=== PATIENT | male | born 1990 | race African-American/Black ===

== ENCOUNTER 2019-03-09 18:57 | Emergency (ER) | payer BC ==
[2019-03-09] MEDS ORDERED: FENTANYL CITR 100 MCG/2 ML ONE (21:32)
[2019-03-09] MEDS ORDERED: CLINDAMYCIN 900MG/D5W 900 MG/50 ML IVPB IV ONE (21:33)
[2019-03-09] MEDS ORDERED: ONDANSETRON 4 MG/2 ML VIAL ONE (21:33)
[2019-03-09] MEDS ORDERED: NA CHLORIDE 0.9% 1,000 ML ONE (21:33)
[2019-03-09] MEDS ORDERED: LIDOCAINE 1% MPF 5 ML VIAL ONE (21:33)
[2019-03-09 21:49] LABS: Absolute Lymphocytes (CBC) 1.3 K/uL (0.7-4.9); Absolute Neutrophil 9.5 K/uL (1.8-8.0); Basophils % 0.2 % (0-1.3); Eosinophils % 0.4 % (0-4.4); Hematocrit 41.7 % (39.6-49.0); Lymphocytes % 10.8 % (15.3-44.8); MPV 9.1 fL (7.6-11.3); Monocytes % 8.4 % (3.3-12.3); RBC Red Blood Cell Count 4.54 M/uL (4.33-5.43)
[2019-03-09 22:02] LABS: Potassium 3.5 mmol/L (3.5-5.1)
[2019-03-09] MEDS ORDERED: BUPIVACAINE 0.5% PF 10 ML VIAL ONE (22:17)
[2019-03-09] MEDS ORDERED: LIDOCAINE 1% W/EPI 1:100,000 MDV 50 ML VIAL ONE (22:17)
--- NOTE | 2019-03-09 22:31 | EDPHYS ---
Physician Documentation [facility] Name: Yves Lee II Age: 28 yrs Sex: Male : 1990 Arrival Date: 03/09/2019 Time: 19:03 Bed 16 Private MD: ED Physician Pieter Szymanski HPI: 03/09 21:10 This 28 yrs old Black Male presents to ER via Ambulatory with complaints of Boil, Fever.cp 21:10 the patient presents with a swollen area of the coccyx. cp 21:10 Description: swollen, tense. cp 21:10 Onset: The symptoms/episode began/occurred 3 day(s) ago. cp 21:10 Associated signs and symptoms: Pertinent positives: fever, Pertinent negatives: cp discharge, drainage. The patient has been recently seen by a physician: in [place], yesterday, with similar presenting complaints, was given a prescription for pain medications, was given a prescription for antibiotics. Historical: - Allergies: 19:06 No Known Allergies; jd3 - Home Meds: 19:06 None [Active]; jd3 - PMHx: 19:06 None; jd3 - PSHx: 19:06 None; jd3 - Immunization history:: Adult Immunizations up to date. - Social history:: Smoking status: Patient/guardian denies using tobacco. - Ebola Screening: : Patient negative for fever greater than or equal to 101.5 degrees Fahrenheit, and additional compatible Ebola Virus Disease symptoms. ROS: 21:15 Skin: Positive for swelling, of the coccyx, pain. cp 21:15 Constitutional: Negative for body aches, chills, fever. cp 21:15 Cardiovascular: Negative for chest pain. 21:15 Respiratory: Negative for cough, shortness of breath, wheezing. 21:15 Abdomen/GI: Negative for abdominal pain, nausea, vomiting, and diarrhea. 21:15 All other systems are negative. Exam: 21:20 Constitutional: The patient appears in no acute distress, alert, awake, non-toxic, well cp developed, well nourished, uncomfortable. 21:20 Head/Face: Normocephalic, atraumatic. cp 21:20 Eyes: Periorbital structures: appear normal, Conjunctiva: normal, Lids and lashes: appear normal, bilaterally. 21:20 ENT: External ear(s): are unremarkable, Nose: is normal, Mouth: Lips: moist, Oral mucosa: moist. 21:20 Chest/axilla: Inspection: normal. 21:20 Cardiovascular: Rate: tachycardic. 21:20 Respiratory: the patient does not display signs of respiratory distress, Respirations: normal. 21:20 Abdomen/GI: Inspection: abdomen appears normal, Palpation: abdomen is soft and non-tender, in all quadrants. 21:20 Skin: abscess, that is small, of the coccyx, with drainage, that is purulent. 21:20 Neuro: Orientation: to person, place \T\ time. Mentation: is normal, Motor: moves all fours, strength is normal. Vital Signs: 19:06 BP 143 / 69; Pulse 111; Resp 17 S; Temp 98.2(O); Pulse Ox 99% on R/A; Weight 95.25 kg jd3 (R); Height 6 ft. 0 in. (182.88 cm) (R); Pain 5/10; 19:47 BP 118 / 75; Pulse 101; Resp 18; Temp 98.9; Pulse Ox 100% on R/A; wh 22:50 BP 119 / 75; Pulse 93; Resp 18; Pulse Ox 97% on R/A; wh 19:06 Body Mass Index 28.48 (95.25 kg, 182.88 cm) jd3 Procedures: 22:30 I \T\ D: Incision and drainage was performed for an abscess of the pilonidal cyst Prepped cp with Betadine, Anesthetized with 9 ccs of 1% lidocaine with epi and 0.5% marcaine. Incised with #11 blade. Drained small amount purulent fluid. Packed with iodoform gauze, Dressing: sterile 4x4 gauze, the patient tolerated the procedure well. MDM: 19:11 Patient medically screened. cp 21:00 Differential diagnosis: abscess, cellulitis. cp 22:31 Data reviewed: vital signs, nurses notes, and as a result, I will discharge patient. cp 22:31 Counseling: I had a detailed discussion with the patient and/or guardian regarding: the cp historical points, exam findings, and any diagnostic results supporting the discharge/admit diagnosis, to return to the emergency department if symptoms worsen or persist or if there are any questions or concerns that arise at home. Response to treatment: the patient's symptoms have mildly improved after treatment, and as a result, I will discharge patient. ED course: VSS. Pain improved. IV clindamycin given in ED. Patient currently taking Bactrim, will add oral clindamycin and discharge to home for continued monitoring. 03/09 21:05 Order name: CBC with Diff cp 03/09 21:05 Order name: BMP; Complete Time: 22:16 cp 03/09 21:05 Order name: Wound Culture cp 03/09 21:07 Order name: CBC with Automated Diff; Complete Time: 22:16 EDMS 03/09 21:05 Order name: IV; Complete Time: 21:38 cp 03/09 21:05 Order name: I\T\D Setup; Complete Time: 21:38 cp Administered Medications: 21:36 Drug: Clindamycin 900 mg Route: IVPB; Infused Over: 30 mins; Site: left antecubital; 23:02 Follow up: Response: No adverse reaction; IV Status: Completed infusion 21:37 Drug: NS 0.9% 1000 ml Route: IV; Rate: 1 bolus; Site: left antecubital; 23:03 Follow up: Response: No adverse reaction; IV Status: Completed infusion 21:37 Drug: fentaNYL (PF) 25 mcg Route: IVP; Site: left antecubital; 23:03 Follow up: Response: No adverse reaction 21:37 Drug: Zofran 4 mg Route: IVP; Site: left antecubital; 23:03 Follow up: Response: No adverse reaction Disposition: 23:15 Chart complete. Disposition: 03/09/19 22:31 Discharged to Home. Impression: Pilonidal cyst with abscess. - Condition is Stable. - Discharge Instructions: Pilonidal Cyst, Incision and Drainage of a Pilonidal Cyst, Care After, Incision and Drainage of a Pilonidal Cyst. - Prescriptions for Clindamycin HCl 300 mg Oral Capsule - take 1 capsule by ORAL route every 6 hours for 10 days; 40 capsule. Tylenol- Codeine #3 300-30 mg Oral Tablet - take 2 tablets by ORAL route every 6 hours As needed; 20 tablet. - Medication Reconciliation Form, Thank You Letter, Antibiotic Education, Prescription Opioid Use, Work release form form. - Follow up: Donald Sarmiento MD; When: 2 - 3 days; Reason: Wound Recheck. - Problem is new. - Symptoms have improved. Addendum: 03/12/2019 07:43 Co-signature as Attending Physician, Pieter Szymanski MD I agree with the assessment and c woods plan of care. Signatures: Dispatcher [employer] [facility] Pieter Szymanski MD MD cha Page, Corey, PA PA Bianka, Yoav Denis Montalvo RN RN jd3 Corrections: (The following items were deleted from the chart) 03/09 23:05 22:31 03/09/2019 22:31 Discharged to Home. Impression: Pilonidal cyst with abscess. Condition is Stable. Forms are Medication Reconciliation Form, Thank You Letter, Antibiotic Education, Prescription Opioid Use. Follow up: Dr. Donald Sarmiento; When: 2 - 3 days; Reason: Wound Recheck. Problem is new. Symptoms have improved. cp
--- NOTE | 2019-03-09 22:31 | ER ---
Nurse's Notes [facility] Name: Yves Lee II Age: 28 yrs Sex: Male : 1990 Arrival Date: 03/09/2019 Time: 19:03 Bed 16 Private MD: Diagnosis: Pilonidal cyst with abscess Presentation: 03/09 19:04 Presenting complaint: Patient states: "i have a boil on my lower back upper butt. I jd3 went to [facility] and they gave me some antimitotics. today i started running a fever. I took tow 500 mg Tylenol before I came and my pain medication called Ketorolac 10 mg.". Transition of care: patient was not received from another setting of care. Onset of symptoms was March 09, 2019. Risk Assessment: Do you want to hurt yourself or someone else? Patient reports no desire to harm self or others. Initial Sepsis Screen: Does the patient meet any 2 criteria? HR > 90 bpm. Does the patient have a suspected source of infection? No. Patient's initial sepsis screen is negative. Care prior to arrival: None. 19:04 Method Of Arrival: Ambulatory jd3 19:04 Acuity: CYRUS 3 jd3 Triage Assessment: 19:45 General: Appears in no apparent distress. Behavior is calm, cooperative, appropriate wh for age. Pain: Complains of pain in coccyx Pain does not radiate. Pain currently is 8 out of 10 on a pain scale. Quality of pain is described as aching, Pain began 2-3 days ago. Aggravated by increased activity. Historical: - Allergies: 19:06 No Known Allergies; jd3 - Home Meds: 19:06 None [Active]; jd3 - PMHx: 19:06 None; jd3 - PSHx: 19:06 None; jd3 - Immunization history:: Adult Immunizations up to date. - Social history:: Smoking status: Patient/guardian denies using tobacco. - Ebola Screening: : Patient negative for fever greater than or equal to 101.5 degrees Fahrenheit, and additional compatible Ebola Virus Disease symptoms. Screenin:45 Abuse screen: Denies threats or abuse. Denies injuries from another. Nutritional wh screening: No deficits noted. Tuberculosis screening: No symptoms or risk factors identified. Fall Risk None identified. Assessment: 19:46 General: Appears in no apparent distress. Behavior is calm, cooperative, appropriate wh for age. Neuro: Level of Consciousness is awake, alert, obeys commands, Oriented to person, place, time, situation. Cardiovascular: Capillary refill < 3 seconds. Respiratory: Airway is patent Respiratory effort is even, unlabored, Respiratory pattern is regular, symmetrical. GI: Abdomen is flat, non-distended. : No signs and/or symptoms were reported regarding the genitourinary system. EENT: No signs and/or symptoms were reported regarding the EENT system. Derm: Skin is intact, is healthy with good turgor, Skin is pink, warm \\T\\ dry. normal. Musculoskeletal: Range of motion: intact in all extremities. 21:05 Reassessment: Patient appears in no apparent distress at this time. Patient and/or wh family updated on plan of care and expected duration. Pain level reassessed. Patient is alert, oriented x 3, equal unlabored respirations, skin warm/dry/pink. 22:06 Reassessment: Patient appears in no apparent distress at this time. Patient and/or wh family updated on plan of care and expected duration. Pain level reassessed. Patient is alert, oriented x 3, equal unlabored respirations, skin warm/dry/pink. 22:53 Reassessment: Patient appears in no apparent distress at this time. Patient and/or wh family updated on plan of care and expected duration. Pain level reassessed. Patient is alert, oriented x 3, equal unlabored respirations, skin warm/dry/pink. Vital Signs: 19:06 BP 143 / 69; Pulse 111; Resp 17 S; Temp 98.2(O); Pulse Ox 99% on R/A; Weight 95.25 kg jd3 (R); Height 6 ft. 0 in. (182.88 cm) (R); Pain 5/10; 19:47 BP 118 / 75; Pulse 101; Resp 18; Temp 98.9; Pulse Ox 100% on R/A; wh 22:50 BP 119 / 75; Pulse 93; Resp 18; Pulse Ox 97% on R/A; wh 19:06 Body Mass Index 28.48 (95.25 kg, 182.88 cm) jd3 ED Course: 19:03 Patient arrived in ED. es 19:05 Triage completed. jd3 19:07 Arm band placed on. jd3 19:11 Pieter Marie PA is PHCP. cp 19:11 Pieter Szymanski MD is Attending Physician. ankit 19:13 Yoav Carlton is Primary Nurse. 19:46 Patient has correct armband on for positive identification. Pulse ox on. NIBP on. 22:30 Donald Sarmiento MD is Referral Physician. cp 22:35 Assist provider with I \\T\\ D: of an abscess on Pilonidal Cyst. 22:53 IV discontinued, intact, bleeding controlled, No redness/swelling at site. Administered Medications: 21:36 Drug: Clindamycin 900 mg Route: IVPB; Infused Over: 30 mins; Site: left antecubital; 23:02 Follow up: Response: No adverse reaction; IV Status: Completed infusion 21:37 Drug: NS 0.9% 1000 ml Route: IV; Rate: 1 bolus; Site: left antecubital; 23:03 Follow up: Response: No adverse reaction; IV Status: Completed infusion 21:37 Drug: fentaNYL (PF) 25 mcg Route: IVP; Site: left antecubital; 23:03 Follow up: Response: No adverse reaction 21:37 Drug: Zofran 4 mg Route: IVP; Site: left antecubital; 23:03 Follow up: Response: No adverse reaction Outcome: 22:31 Discharge ordered by MD. 23:03 Discharged to home ambulatory, with friend. 23:03 Condition: good 23:03 Discharge instructions given to patient, Instructed on discharge instructions, follow up and referral plans. no drinking with medication, no driving heavy equipment, medication usage, wound care, Demonstrated understanding of instructions, follow-up care, medications, wound care, Prescriptions given X 2. 23:05 Patient left the ED. Signatures: Jennifer Saavedra Corey, PA PA cp Habalo, Winsy Denis Montalvo RN RN jd3 Corrections: (The following items were deleted from the chart) 19:08 19:04 Presenting complaint: Patient states: "i have a boil on my lower back upper butt. jd3 I went to [facility] and they gave me some antimitotics. today i started running a fever. I took tow 500 mg Tylenol before I came." jd3 19:08 19:04 Care prior to arrival: None. jd3 jd3 22:55 22:53 Assist provider with I \\T\\ D: of an abscess on wh wh
== END 2019-03-09 23:05 | disposition home or self-care (01) ==
LOC: ER 18:57
PROC: 0H98XZZ Drainage of Buttock Skin, External Approach (ICD-10-PCS; principal; 2019-03-09)
DX: L05.01 Pilonidal cyst with abscess (principal)
CPT/HCPCS: 36415; 80048; 85025; 87070; 87077; 87186; 87205; 96365; 96375; 99284; J2405; J3010; J7030

== ENCOUNTER 2020-12-02 08:23 | Emergency (ER) | payer BC, OTHER ==
--- NOTE | 2020-12-02 09:23 | RAD REPORT ---
EXAM DESCRIPTION: CT - Head Brain Wo Cont - 12/02/2020 9:02 am CLINICAL HISTORY: Headache COMPARISON: None. TECHNIQUE: Computed axial tomography of the head was obtained. IV contrast was not requested. All CT scans are performed using dose optimization technique as appropriate and may include automated exposure control or mA/KV adjustment according to patient size. FINDINGS: An intracranial bleed is not seen . The ventricles are normal in caliber. No extra-axial fluid collection is noted. Fluid within the sinuses/ mastoids is not seen. IMPRESSION: No acute intracranial abnormality is seen. If patient's symptoms persist MRI of the bra in would be recommended.
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
[2020-12-02] MEDS ORDERED: METOCLOPRAMIDE 10 MG/2mL INJ ONE (09:33)
[2020-12-02] MEDS ORDERED: dexAMETHasone 10 MG/ML VIAL ONE (09:33)
[2020-12-02 10:06] VITALS: O2SAT 100
[2020-12-02 10:07] VITALS: BP 132/86; TEMP 97.8
== END 2020-12-02 09:53 | disposition home or self-care (01) ==
LOC: ER 08:23
DX: F07.81 Postconcussional syndrome (principal); V89.2XXD Person injured in unspecified motor-vehicle accident, traffic, subsequent encounter; F17.210 Nicotine dependence, cigarettes, uncomplicated
CPT/HCPCS: 70450; 96372; 99284; J2765; J1100